=== PATIENT | male | born 1950 | race Caucasian/White ===

== ENCOUNTER 2023-09-12 01:18 | Inpatient (IN) | payer MEDICARE ==
[~2023-09-12] VITALS: Ht 172.7 cm; Wt 88.0 kg
[2023-09-12] MEDS ORDERED: MAGNESIUM SULFATE 2 GM in IV DEXTROSE 5% 100 ML IV ONE (01:30)
[2023-09-12] MEDS ORDERED: MAGNESIUM SULFATE/D5W 200 ML ONE (01:42)
[2023-09-12] MEDS ORDERED: DIGOXIN 500 MCG/2 ML AMP IV ONE (01:45)
[2023-09-12 01:55] LABS: BASOPHILS # (AUTO) 0.1 K/UL (0.0-0.2); BASOPHILS % (AUTO) 1.3 % (0.0-2.0); EOSINOPHILS % (AUTO) 0.5 % (0.0-7.0); HEMATOCRIT 36.8 % (36.7-47.1); LYMPHOCYTES # (AUTO) 0.4 K/uL (0.8-4.8); LYMPHOCYTES % (AUTO) 7.2 % (20.5-51.5); MEAN CORPUSCULAR HEMOGLOBIN 32.9 uug (23.8-33.4); MEAN CORPUSCULAR HGB CONC 33 g/dL (32.5-36.3); MONOCYTES # (AUTO) 0.8 K/uL (0.1-1.30); MONOCYTES % (AUTO) 13.2 % (0.0-11.0); NEUTROPHILS # (AUTO) 4.6 K/uL (1.8-8.9); NEUTROPHILS % (AUTO) 77.8 % (38.5-71.5); PLATELET COUNT (AUTO) 130 K/uL (152-348); RED BLOOD CELL COUNT(AUTO) 3.64 MIL/uL (4.06-5.63); RED CELL DISTRIBUTION WIDTH 16.4 % (12.1-16.2); WHITE BLOOD COUNT (AUTO) 5.9 K/uL (3.6-10.2)
[2023-09-12] MEDS ORDERED: DIGOXIN 500 MCG/2 ML AMP ONE (01:57)
[2023-09-12] MEDS ORDERED: DILTIAZEM HCL 25 MG IV IV ONE ×2 (02:00→06:00)
[2023-09-12 02:01] LABS: CALCIUM 9.5 mg/dL (8.5-10.1); CARBON DIOXIDE 23 mmol/L (21-32); CHLORIDE 105 mmol/L (98-107); CREATININE 1.2 mg/dL (0.6-1.3); GLUCOSE 112 mg/dL (74-106); POTASSIUM 4.4 mmol/L (3.5-5.1); SODIUM SERUM 140 mmol/L (136-145); UREA NITROGEN, BLOOD 21 mg/dL (7-18)
[2023-09-12 02:02] LABS: DIFFERENTIAL COMMENT 1
[2023-09-12] MEDS ORDERED: PROM12.513 PO (02:10)
[2023-09-12] MEDS ORDERED: DILT30TA2 PO (02:10)
[2023-09-12] MEDS ORDERED: TRAM50TA2 PO (02:10)
[2023-09-12] MEDS ORDERED: METF-441 PO (02:10)
[2023-09-12] MEDS ORDERED: [UNRECOGNIZED DRUG - OTHER] (02:10)
[2023-09-12] MEDS ORDERED: CLOP75TA33 PO (02:10)
[2023-09-12] MEDS ORDERED: FURO20TA4 PO (02:10)
[2023-09-12] MEDS ORDERED: ATOR40TA PO (02:10)
[2023-09-12] MEDS ORDERED: LOSA25TA27 PO (02:10)
[2023-09-12 02:13] LABS: ALANINE AMINOTRANSFERASE 37 U/L (16-63); ALKALINE PHOSPHATASE 148 U/L (50-136); ASPARTATE AMINOTRANSFERASE 26 U/L (15-37); BILIRUBIN,DIRECT 0.7 mg/dL (0.0-0.2); NT-PRO BNP 5704 pg/mL (0-125); TOTAL PROTEIN, SERUM 5.7 g/dL (6.4-8.2)
[2023-09-12] MEDS ORDERED: DILTIAZEM HCL 25 MG IV ONE ×3 (02:13→05:56)
[2023-09-12] MEDS ORDERED: MAGNESIUM SULFATE/D5W 100 ML ONE ×2 (05:54→07:12)
[2023-09-12] MEDS ORDERED: MAGNESIUM SULFATE/D5W 100 ML IV ONE (06:00)
[2023-09-12] MEDS ORDERED: FUROSEMIDE 40 MG/4 ML VIAL IV SCH (10:45)
[2023-09-12] MEDS ORDERED: MAGNESIUM HYDROXIDE 30 ML LIQUID UDC PO PRN (10:45)
[2023-09-12] MEDS ORDERED: REMEDY ESSENTIAL ZINC PASTE 113 GM TP PRN (10:45)
[2023-09-12] MEDS ORDERED: ONDANSETRON 4 MG/2 ML VIAL IV PRN (10:45)
[2023-09-12] MEDS ORDERED: ACETAMINOPHEN 325 MG TABLET PO PRN (10:45)
[2023-09-12] MEDS ORDERED: ZOLPIDEM 5 MG TABLET PO PRN (10:45)
[2023-09-12 11:00] VITALS: BP 166/99; TEMP 97.3; O2SAT 99
[2023-09-12] MEDS ORDERED: TRAMADOL HCL 50 MG TABLET PO PRN (11:00)
[2023-09-12] MEDS ORDERED: PROMETHAZINE HCL 12.5 MG PO SCH (12:00)
[2023-09-12] MEDS ORDERED: DILTIAZEM HCL 30 MG TABLET PO SCH (12:16)
[2023-09-12] MEDS: ENOXAPARIN SODIUM 40 MG/0.4 ML DISP.SYRIN SQ SCH (14:02)
[2023-09-12] MEDS: PROMETHAZINE HCL 25 MG TABLET PO SCH ×2 (14:03→18:19)
[2023-09-12 16:44] VITALS: BP 151/70; TEMP 97.8; O2SAT 96
[2023-09-12 20:42] VITALS: BP 142/83; TEMP 97.7; O2SAT 96
[2023-09-12] MEDS: ATORVASTATIN 40 MG TABLET PO SCH (21:12)
[2023-09-13] MEDS: PROMETHAZINE HCL 25 MG TABLET PO SCH ×2 (00:55→06:28)
[2023-09-13 04:42] VITALS: BP 129/63; TEMP 97.7; O2SAT 96
[2023-09-13] MEDS: PANTOPRAZOLE SODIUM 40 MG TABLET.DR PO SCH (06:28)
[2023-09-13 07:50] LABS: CALCIUM 8.8 mg/dL (8.5-10.1); CARBON DIOXIDE 29 mmol/L (21-32); CHLORIDE 106 mmol/L (98-107); CHOLESTEROL 133 mg/dL (<200); CREATININE 1.2 mg/dL (0.6-1.3); GLUCOSE 115 mg/dL (74-106); HDL CHOLESTEROL 86 mg/dL (40-60); MAGNESIUM 1.9 mg/dL (1.8-2.4); PHOSPHOROUS 3.9 mg/dL (2.5-4.9); POTASSIUM 3.1 mmol/L (3.5-5.1); SODIUM SERUM 143 mmol/L (136-145); TRIGLYCERIDES 85 MG/DL (30-150); UREA NITROGEN, BLOOD 17 mg/dL (7-18)
[2023-09-13] MEDS ORDERED: POTASSIUM CHLORIDE 20 MEQ POWDER PACKET PO ONE ×2 (08:30→09:45)
[2023-09-13 08:47] LABS: BASOPHILS # (AUTO) 0.1 K/UL (0.0-0.2); BASOPHILS % (AUTO) 1.3 % (0.0-2.0); DIFFERENTIAL COMMENT 0; EOSINOPHILS # (AUTO) 0.1 K/uL (0.0-0.7); LYMPHOCYTES # (AUTO) 0.4 K/uL (0.8-4.8); MONOCYTES # (AUTO) 0.8 K/uL (0.1-1.30); NEUTROPHILS # (AUTO) 4.2 K/uL (1.8-8.9); WHITE BLOOD COUNT (AUTO) 5.6 K/uL (3.6-10.2)
[2023-09-13 08:50] LABS: EOSINOPHILS % (AUTO) 1.1 % (0.0-7.0); HEMATOCRIT 34.8 % (36.7-47.1); HEMOGLOBIN 11.7 g/dL (12.5-16.3); LYMPHOCYTES % (AUTO) 7.3 % (20.5-51.5); MEAN CORPUSCULAR HEMOGLOBIN 33.3 uug (23.8-33.4); MEAN CORPUSCULAR HGB CONC 34 g/dL (32.5-36.3); MONOCYTES % (AUTO) 14.9 % (0.0-11.0); NEUTROPHILS % (AUTO) 75.4 % (38.5-71.5); PLATELET COUNT (AUTO) 111 K/uL (152-348); RED BLOOD CELL COUNT(AUTO) 3.52 MIL/uL (4.06-5.63); RED CELL DISTRIBUTION WIDTH 15.6 % (12.1-16.2)
[2023-09-13] MEDS ORDERED: CLOPIDOGREL 75 MG TABLET PO SCH (09:00)
[2023-09-13] MEDS: DILTIAZEM HCL CD 240 MG CAP.SR.24H PO SCH (09:31)
[2023-09-13] MEDS: LOSARTAN POTASSIUM 25 MG TABLET PO SCH (09:31)
[2023-09-13] MEDS: ENOXAPARIN SODIUM 40 MG/0.4 ML DISP.SYRIN SQ SCH (09:32)
[2023-09-13] MEDS: FUROSEMIDE 40 MG/4 ML VIAL IV SCH ×2 (09:40→16:57)
[2023-09-13] MEDS: POTASSIUM CHLORIDE 50 ML IV SCH ×2 (09:40→10:37)
[2023-09-13] MEDS: MAGNESIUM SULFATE/D5W 100 ML IV SCH ×2 (09:40→10:36)
[2023-09-13] MEDS ORDERED: PROMETHAZINE HCL 25 MG TABLET PO PRN (11:15)
[2023-09-13] MEDS ORDERED: TIOT4MIS3 IH (11:16)
[2023-09-13] MEDS ORDERED: CARV6.252 PO (11:16)
[2023-09-13] MEDS ORDERED: MONT10TA33 PO (11:16)
[2023-09-13] MEDS ORDERED: GLIP5TAB13 PO (11:16)
[2023-09-13] MEDS ORDERED: ASPI81TA31 PO (11:16)
[2023-09-13 11:54] VITALS: BP 134/82; TEMP 97.6; O2SAT 98
[2023-09-13 15:55] LABS: THYROID STIMULATING HORMONE 3.048 mIU/mL (0.358-3.740)
[2023-09-13 16:44] VITALS: BP 129/81; TEMP 97.6; O2SAT 98
[2023-09-13] MEDS: MONTELUKAST SODIUM 10 MG TABLET PO SCH (17:28)
[2023-09-13] MEDS: CARVEDILOL 6.25 MG TABLET PO SCH (17:28)
[2023-09-13] MEDS: glipiZIDE 5 MG TABLET PO SCH (17:28)
[2023-09-13] MEDS ORDERED: glipiZIDE 5 MG TABLET PO SCH (18:00)
[2023-09-13 20:36] VITALS: BP 147/85; TEMP 97.4; O2SAT 98
[2023-09-13] MEDS: ATORVASTATIN 40 MG TABLET PO SCH (21:03)
[2023-09-13] MEDS: APIXABAN 5 MG TABLET PO SCH (21:08)
[2023-09-14 00:22] VITALS: BP 138/76; TEMP 97.5; O2SAT 97
[2023-09-14] MEDS: PANTOPRAZOLE SODIUM 40 MG TABLET.DR PO SCH (06:02)
[2023-09-14 08:57] LABS: CALCIUM 8.7 mg/dL (8.5-10.1); CARBON DIOXIDE 32 mmol/L (21-32); CHLORIDE 104 mmol/L (98-107); GLUCOSE 116 mg/dL (74-106); MAGNESIUM 1.8 mg/dL (1.8-2.4); PHOSPHOROUS 3.6 mg/dL (2.5-4.9); SODIUM SERUM 142 mmol/L (136-145); UREA NITROGEN, BLOOD 15 mg/dL (7-18)
[2023-09-14] MEDS: FUROSEMIDE 40 MG/4 ML VIAL IV SCH ×2 (09:00→17:49)
[2023-09-14] MEDS: DILTIAZEM HCL CD 240 MG CAP.SR.24H PO SCH (10:07)
[2023-09-14] MEDS: LOSARTAN POTASSIUM 25 MG TABLET PO SCH (10:08)
[2023-09-14] MEDS: CARVEDILOL 6.25 MG TABLET PO SCH (10:09)
[2023-09-14] MEDS: APIXABAN 5 MG TABLET PO SCH ×2 (10:14→21:05)
[2023-09-14 10:18] LABS: BASOPHILS # (AUTO) 0.1 K/UL (0.0-0.2); BASOPHILS % (AUTO) 1.2 % (0.0-2.0); EOSINOPHILS # (AUTO) 0.1 K/uL (0.0-0.7); EOSINOPHILS % (AUTO) 1.4 % (0.0-7.0); HEMATOCRIT 34.7 % (36.7-47.1); HEMOGLOBIN 11.6 g/dL (12.5-16.3); LYMPHOCYTES # (AUTO) 0.5 K/uL (0.8-4.8); LYMPHOCYTES % (AUTO) 10.6 % (20.5-51.5); MEAN CORPUSCULAR HEMOGLOBIN 33.1 uug (23.8-33.4); MEAN CORPUSCULAR HGB CONC 33 g/dL (32.5-36.3); MEAN CORPUSCULAR VOLUME 99.4 fL (73.0-96.2); MONOCYTES # (AUTO) 0.7 K/uL (0.1-1.30); MONOCYTES % (AUTO) 16.2 % (0.0-11.0); NEUTROPHILS # (AUTO) 3.1 K/uL (1.8-8.9); NEUTROPHILS % (AUTO) 70.6 % (38.5-71.5); PLATELET COUNT (AUTO) 128 K/uL (152-348); RED BLOOD CELL COUNT(AUTO) 3.49 MIL/uL (4.06-5.63); RED CELL DISTRIBUTION WIDTH 16.3 % (12.1-16.2); WHITE BLOOD COUNT (AUTO) 4.4 K/uL (3.6-10.2)
[2023-09-14 10:24] LABS: DIFFERENTIAL COMMENT 1
[2023-09-14 10:46] LABS: POTASSIUM 2.8 mmol/L (3.5-5.1)
[2023-09-14] MEDS ORDERED: POTASSIUM CHLORIDE 20 MEQ TAB.PRT.SR PO ONE (11:15)
[2023-09-14 11:44] VITALS: BP 114/70; TEMP 97.5; O2SAT 97
[2023-09-14 14:12] LABS: EOSINOPHILS % (MANUAL) 1 % (0-8)
[2023-09-14 14:13] LABS: LYMPHOCYTES % (MANUAL) 10 % (20-40); MONOCYTES % (MANUAL) 12 % (2-10); NEUTROPHILS % (MANUAL) 77 % (42-75)
[2023-09-14 14:21] LABS: PLATELET ESTIMATE DECREASED
[2023-09-14] MEDS: POTASSIUM CHLORIDE 50 ML IV SCH ×4 (14:34→17:41)
[2023-09-14 15:48] VITALS: BP 139/82; TEMP 97.3; O2SAT 96
[2023-09-14] MEDS: MONTELUKAST SODIUM 10 MG TABLET PO SCH (17:49)
[2023-09-14] MEDS: glipiZIDE 5 MG TABLET PO SCH (17:49)
[2023-09-14 20:00] VITALS: BP 136/69; TEMP 97.6; O2SAT 98
[2023-09-14] MEDS: ATORVASTATIN 40 MG TABLET PO SCH (21:00)
[2023-09-15 00:57] VITALS: BP 126/68; TEMP 98; O2SAT 99
[2023-09-15] MEDS: PANTOPRAZOLE SODIUM 40 MG TABLET.DR PO SCH (06:25)
[2023-09-15 06:36] LABS: BASOPHILS # (AUTO) 0.1 K/UL (0.0-0.2); BASOPHILS % (AUTO) 1.5 % (0.0-2.0); EOSINOPHILS # (AUTO) 0.1 K/uL (0.0-0.7); EOSINOPHILS % (AUTO) 1.5 % (0.0-7.0); HEMATOCRIT 35.2 % (36.7-47.1); HEMOGLOBIN 11.6 g/dL (12.5-16.3); LYMPHOCYTES # (AUTO) 0.5 K/uL (0.8-4.8); LYMPHOCYTES % (AUTO) 10.5 % (20.5-51.5); MEAN CORPUSCULAR HEMOGLOBIN 33.1 uug (23.8-33.4); MEAN CORPUSCULAR HGB CONC 33 g/dL (32.5-36.3); MEAN CORPUSCULAR VOLUME 100.2 fL (73.0-96.2); MONOCYTES # (AUTO) 0.7 K/uL (0.1-1.30); MONOCYTES % (AUTO) 15.9 % (0.0-11.0); NEUTROPHILS # (AUTO) 3.3 K/uL (1.8-8.9); NEUTROPHILS % (AUTO) 70.6 % (38.5-71.5); PLATELET COUNT (AUTO) 125 K/uL (152-348); RED BLOOD CELL COUNT(AUTO) 3.52 MIL/uL (4.06-5.63); RED CELL DISTRIBUTION WIDTH 15.6 % (12.1-16.2); WHITE BLOOD COUNT (AUTO) 4.6 K/uL (3.6-10.2)
[2023-09-15 06:49] LABS: DIFFERENTIAL COMMENT 1
[2023-09-15 07:12] LABS: CALCIUM 9.1 mg/dL (8.5-10.1); MAGNESIUM 1.8 mg/dL (1.8-2.4); PHOSPHOROUS 3.4 mg/dL (2.5-4.9); POTASSIUM 3.4 mmol/L (3.5-5.1)
[2023-09-15] MEDS: FUROSEMIDE 40 MG/4 ML VIAL IV SCH (08:47)
[2023-09-15] MEDS: APIXABAN 5 MG TABLET PO SCH (08:49)
[2023-09-15] MEDS: DILTIAZEM HCL CD 240 MG CAP.SR.24H PO SCH (08:49)
[2023-09-15] MEDS: LOSARTAN POTASSIUM 25 MG TABLET PO SCH (08:50)
[2023-09-15] MEDS ORDERED: POTASSIUM CHLORIDE 20 MEQ POWDER PACKET PO ONE (10:15)
[2023-09-15 11:20] VITALS: BP 132/87; TEMP 97.6; O2SAT 97
[2023-09-15 12:09] LABS: EOSINOPHILS % (MANUAL) 1 % (0-8); LYMPHOCYTES % (MANUAL) 12 % (20-40)
[2023-09-15 12:10] LABS: MONOCYTES % (MANUAL) 15 % (2-10); NEUTROPHILS % (MANUAL) 72 % (42-75); PLATELET ESTIMATE ADEQUATE
[2023-09-15] MEDS ORDERED: APIX5TAB PO (13:17)
[2023-09-15] MEDS ORDERED: DILT240C88 PO (13:17)
[2023-09-15] MEDS ORDERED: PANT40TA49 PO (13:17)
[2023-09-15] MEDS ORDERED: POTA10CA43 PO (13:17)
[2023-09-15 15:00] VITALS: BP 132/87; TEMP 97.6; O2SAT 97
== END 2023-09-15 15:15 | disposition home health service (06) | DRG 291 ==
LOC: ER 01:21 → TELE3 08:34
PROVIDERS: ADMIT Student in an Organized Health Care Education/Training Program; ATTEND Student in an Organized Health Care Education/Training Program
PROC: 05H933Z Insertion of Infusion Device into Right Brachial Vein, Percutaneous Approach (ICD-10-PCS; principal; 2023-09-14)
DX: I11.0 Hypertensive heart disease with heart failure (principal); I50.33 Acute on chronic diastolic (congestive) heart failure; I82.432 Acute embolism and thrombosis of left popliteal vein; E44.0 Moderate protein-calorie malnutrition; D68.59 Other primary thrombophilia; I48.0 Paroxysmal atrial fibrillation; Z85.21 Personal history of malignant neoplasm of larynx; Z92.21 Personal history of antineoplastic chemotherapy; J44.9 Chronic obstructive pulmonary disease, unspecified; E87.6 Hypokalemia; E86.0 Dehydration; E83.42 Hypomagnesemia; E78.5 Hyperlipidemia, unspecified; Z95.2 Presence of prosthetic heart valve; Z68.29 Body mass index [BMI] 29.0-29.9, adult; E11.9 Type 2 diabetes mellitus without complications; D69.6 Thrombocytopenia, unspecified; D64.9 Anemia, unspecified; Z79.84 Long term (current) use of oral hypoglycemic drugs; Z79.899 Other long term (current) drug therapy; Z79.82 Long term (current) use of aspirin; Z91.81 History of falling; Z79.02 Long term (current) use of antithrombotics/antiplatelets
CPT/HCPCS: 36415; 70030-TC; 71045; 83735; 84100; 84443; 84484; 85025; 85730; 93005; 93307; A4606; A4663; G0378; J1160; J1650; J1940; J2405; J3475; J3480; J3490; Q0169